=== PATIENT | female | born 1945 | race Caucasian/White ===

== ENCOUNTER → 2017-03-23 | Outpatient (CLI) | payer MEDICARE, BC ==
--- NOTE | 2017-03-23 15:35 | REP ---
MRI RIGHT SHOULDER: TECHNIQUE: Axial T2 fat sat, gradient echo, sagittal oblique T2 fat sat, coronal oblique T1, T2 fat sat. There is a full thickness partial tear of the supraspinatus tendon. Other rotator cuff tendons appear intact. There are mild hypertrophic degenerative changes of the acromioclavicular joint with subchondral cystic changes in the distal clavicle. There is a type 2 acromion. Biceps tendon is within the bicipital groove with no tenosynovitis. There is no Hill-Sachs deformity. Deltoid muscle demonstrates no abnormal signal. There appears to be fraying at the biceps labral complex. I do not see a discrete labral tear. There is no paralabral cyst. There is no occult fracture. There is mild fluid in the subacromial subdeltoid bursae. IMPRESSION: Full thickness partial tear supraspinatus tendon. Mild hypertrophic degenerative changes acromioclavicular joint with type 2 acromion. There is fraying at the biceps labral complex without a discrete labral tear. There is mild fluid in the subacromial subdeltoid bursae. Signed by Jac Mendosa MD 03/23/2017 05:11 P
== END ==
LOC: M PLARAD 13:48
PROVIDERS: ATTEND Orthopaedic Surgery
DX: M75.41 Impingement syndrome of right shoulder (principal)